=== PATIENT | female | born 1985 | race American Indian/Alaskan Native ===

== ENCOUNTER 2017-10-15 14:58 | Emergency (ER) | payer SELFPAY ==
[2017-10-15 16:30] LABS: Bacteria,Urine 2+ /HPF (Negative); Bilirubin,Urine NEG (Negative); Blood,Urine SM (Negative); Color,Urine Yellow (Yellow); Hyaline Casts,Urine 7 /LPF; Mucus,Urine FEW /HPF; Protein,Urine <15 mg/dL mg/dL (Negative); Urobilinogen,Urine < 2.0 mg/dL (<2.0)
[2017-10-15 16:35] LABS: HCG Qualitative,Urine Negative (Negative)
[2017-10-15 16:39] LABS: Amphetamine Screen,Urine PRESUMPTIVE NEGATIVE; Benzodiazepines Screen,Urine PRESUMPTIVE NEGATIVE; Cannabinoid Screen,Urine PRESUMPTIVE NEGATIVE; Cocaine Screen,Urine PRESUMPTIVE NEGATIVE; Methadone Screen,Urine PRESUMPTIVE NEGATIVE; Opiate Screen,Urine PRESUMPTIVE NEGATIVE
[2017-10-15 17:15] LABS: BUN/Creatinine Ratio 8; Blood Urea Nitrogen 4 mg/dL (7-17); Calcium 9.5 mg/dL (8.4-10.2); Hemolysis Index 64
[2017-10-15 19:14] LABS: Basophils # (Auto) 0.1 K/mm3 (0.0-0.1); Basophils % (Auto) 0.7 % (0.0-1.8); Eosinophils # (Auto) 0.5 K/mm3 (0.0-0.4); Eosinophils % (Auto) 3.7 % (0.0-4.3); Hematocrit 34.8 % (30.3-42.9); Hemoglobin 11.5 gm/dl (10.1-14.3); Lymphocytes % (Auto) 30.9 % (13.4-35.0); Mean Corpuscular HGB Conc 33 % (30-34); Mean Corpuscular Volume 72 fl (79-97); Monocytes # (Auto) 1.1 K/mm3 (0.0-0.8); Monocytes % (Auto) 8.7 % (0.0-7.3); Platelet Count 228 K/mm3 (140-440); Red Blood Count 4.81 M/mm3 (3.65-5.03); Red Cell Distribution Width 15.1 % (13.2-15.2)
[2017-10-15 19:48] LABS: Mean Corpuscular Hemoglobin 24 pg (28-32)
[2017-10-15] MEDS ORDERED: APRESOLINE IV ONE (21:06)
--- NOTE | 2017-10-15 21:07 | Emergency Department Report ---
HPI - General Chief Complaint: Psych Time Seen by Provider: 10/15/17 20:18 - HPI HPI: The patient is a 32-year-old female presents for evaluation of mental health. The patient reports expansion constant moderate severity depression for the past one week. She states that she was kicked out of the place where a friend was allowing her to live. She denies suicidal ideations or thoughts of harming herself . The patient denies fever, headache, unexplained weight loss or weight gain, heat or cold intolerance, skin, hair, or nail changes, neuro deficits, homicidal ideations, or auditory or visual hallucinations. ED Past Medical Hx - Social History Smoking Status: Current Every Day Smoker Substance Use Type: Alcohol - Medications Home Medications: Home Medications Medication Instructions Recorded Confirmed Last Taken Type Hydrochlorothiazide [HCTZ] 25 mg PO QDAY #30 tablet 10/16/17 Unknown Rx amLODIPine [Norvasc] 5 mg PO DAILY #31 tab 10/16/17 Unknown Rx ED Review of Systems ROS: Stated complaint: MENTAL HEALTH EVALUATION Other details as noted in HPI Constitutional: denies: fever ENT: denies: throat or neck pain Respiratory: denies: cough, shortness of breath Cardiovascular: denies: chest pain Endocrine: denies unexplained weight loss or gain Gastrointestinal: denies: abdominal pain, nausea Genitourinary: denies: dysuria Musculoskeletal: denies: leg swelling Skin: denies: rash Neurological: denies: headache Hematological/Lymphatic: denies: easy bleeding or easy bruising Psych: reports sadness or hopelessness Physical Exam - Physical Exam Vital Signs: Vital Signs 10/15/17 15:11 Temperature 99.1 F Pulse Rate 97 H Respiratory 16 Rate Blood Pressure 178/115 O2 Sat by Pulse 98 Oximetry Physical Exam: General: well-nourished, well-developed, no acute distress Head: Normocephalic, atraumatic Eyes: normal sclera ENT: Mucous membranes are pink and moist Neck: trachea midline, neck supple, No neck stiffness, no cervical adenopathy Respiratory: Breath sounds equal bilaterally, no wheezing, rales, or rhonchi Cardio: S1 and S2 present, no murmurs, rubs, gallops, capillary refill is brisk Abdomen: Normoactive bowel sounds, soft abdomen, no rigidity, no guarding or rebound tenderness Chest WALL/Back: No tenderness to palpation of the chest wall, no CVA tenderness with percussion Musc: No pitting edema Skin: No rash Neuro: no facial drooping, normal speech Psych: Flat affect, poor insight, depressed mood ED Course Vital Signs 10/15/17 15:11 Temperature 99.1 F Pulse Rate 97 H Respiratory 16 Rate Blood Pressure 178/115 O2 Sat by Pulse 98 Oximetry ED Medical Decision Making - Lab Data Result diagrams: 10/15/17 18:45 10/15/17 16:32 - Medical Decision Making The patient was seen and examined by myself. The patient is placed on a environmental monitoring technician and continuous pulse ox. On initial evaluation, the patient was found to be in no distress. Labs are obtained. Lab results are grossly unremarkable. The patient given a tablet of clonidine for her elevated blood pressure. The patient is medically clear. Mental health is consulted. Mental health evaluates the patient and agrees that the patient is negative for symptoms or signs concerning for risk of suicide or harm to herself. The patient was reevaluated and reported that their symptoms were markedly improved. The patient is stable for discharge with outpatient follow-up. The patient is given follow-up and return instructions. The patient expressed understanding and agreed with the plan. The patient is discharged in stable condition. Critical care attestation.: If time is entered above; I have spent that time in minutes in the direct care of this critically ill patient, excluding procedure time. ED Disposition Clinical Impression: Hypertensive urgency Depressed Qualifiers: Depression Type: major depressive disorder Major depression recurrence: single episode Active/Remission status: currently active Major depression episode severity: unspecified Qualified Code(s): F32.9 - Major depressive disorder, single episode, unspecified Disposition: DC-01 TO HOME OR SELFCARE Is pt being admited?: No Does the pt Need Aspirin: No Condition: Stable Instructions: Depression (ED), Suicide Prevention for Adults (ED) [facility] Time of Disposition: 21:07
[2017-10-15] MEDS ORDERED: CATAPRES PO ONE (21:41)
[2017-10-16 03:42] VITALS: BP 153/100
== END 2017-10-16 03:25 | disposition home or self-care (01) ==
LOC: ED 14:58
DX: F32.9 Major depressive disorder, single episode, unspecified (principal); I16.0 Hypertensive urgency; F17.200 Nicotine dependence, unspecified, uncomplicated; Z79.899 Other long term (current) drug therapy
CPT/HCPCS: 36415; 80048; 80307; 81001; 81025; 85025; 99284; G0480; J0360; 80320

== ENCOUNTER 2017-10-16 04:16 | Emergency (ER) | payer SELFPAY ==
[2017-10-16] MEDS ORDERED: HALDOL IM PRN (09:53)
[2017-10-16] MEDS ORDERED: ATIVAN IM PRN (09:53)
--- NOTE | 2017-10-16 09:57 | Emergency Department Report ---
ED General Adult HPI - General Chief complaint: Psych Stated complaint: MENTAL HEALTH Time Seen by Provider: 10/16/17 09:42 Source: patient, RN notes reviewed, old records reviewed Mode of arrival: Ambulatory Limitations: No Limitations - History of Present Illness Initial comments: This is a 32-year-old female who is unknown to this provider previously. She denies that she has chronic medical or psychiatric conditions, with the exception of morbid obesity, who presents to the ER with a complaint of depression, suicidality, wanting to kill herself. She reports feeling depressed and suicidal for 2 weeks. She indicates she will slit her wrists. She does not have hallucinations, she does not have homicidality, she has not attempted to overdose, and she denies access to guns or firearms. Her symptoms are constant, did not radiate anywhere, do not have qualitative descriptors, and she reports no exacerbating or relieving factors. The patient was seen in this department last night for depression without suicidality, and an unremarkable physical exam, unremarkable laboratory studies, and apparently after being discharged, reregistered, with a new complaint of suicidality. -: Gradual Consistency: constant Improves with: none Worsens with: none Associated Symptoms: denies other symptoms - Related Data Previous Rx's Medication Instructions Recorded Last Taken Type Hydrochlorothiazide [HCTZ] 25 mg PO QDAY #30 tablet 10/16/17 Unknown Rx amLODIPine [Norvasc] 5 mg PO DAILY #31 tab 10/16/17 Unknown Rx Allergies Allergy/AdvReac Type Severity Reaction Status Date / Time No Known Allergies Allergy Unverified 10/15/17 15:22 ED Review of Systems ROS: Stated complaint: MENTAL HEALTH Other details as noted in HPI Constitutional: denies: fever Eyes: denies: eye discharge ENT: denies: epistaxis Respiratory: denies: cough Cardiovascular: denies: chest pain Gastrointestinal: denies: vomiting Genitourinary: denies: dysuria Skin: denies: lesions Neurological: as per HPI Psychiatric: suicidal thoughts. denies: homicidal thoughts ED Past Medical Hx - Past Medical History Hx Arthritis: Yes Additional medical history: Chronic Bronchitis, Morbid Obesity. Cardiomyopathy - Surgical History Past Surgical History?: No - Social History Smoking Status: Current Every Day Smoker - Medications Home Medications: Home Medications Medication Instructions Recorded Confirmed Last Taken Type Hydrochlorothiazide [HCTZ] 25 mg PO QDAY #30 tablet 10/16/17 Unknown Rx amLODIPine [Norvasc] 5 mg PO DAILY #31 tab 10/16/17 Unknown Rx ED Physical Exam - General Limitations: No Limitations General appearance: alert, in no apparent distress, obese - Head Head exam: Present: atraumatic, normocephalic - Eye Eye exam: Present: normal appearance, EOMI. Absent: nystagmus - ENT ENT exam: Present: normal exam, normal orophraynx, mucous membranes moist, normal external ear exam - Neck Neck exam: Present: normal inspection, full ROM - Respiratory Respiratory exam: Present: normal lung sounds bilaterally. Absent: respiratory distress - Cardiovascular Cardiovascular Exam: Present: regular rate, normal rhythm, normal heart sounds. Absent: bradycardia, tachycardia, irregular rhythm, systolic murmur, diastolic murmur, rubs, gallop - GI/Abdominal GI/Abdominal exam: Present: soft, normal bowel sounds. Absent: distended, tenderness, guarding, rebound, rigid, pulsatile mass - Extremities Exam Extremities exam: Present: normal inspection, full ROM, other (2+ pulses noted in the bilateral upper, lower extremities. Compartments soft. No long bony tenderness. The pelvis is stable.). Absent: pedal edema, joint swelling, calf tenderness - Back Exam Back exam: Present: normal inspection, full ROM. Absent: paraspinal tenderness , vertebral tenderness - Neurological Exam Neurological exam: Present: alert, oriented X3, CN II-XII intact, normal gait, other (Extraocular movements intact. Tongue midline. No facial droop. Facial sensation intact to light touch in the V1, V2, V3 distribution bilaterally. 5 and 5 strength in 4 extremities.. Sensation is intact to light touch in 4 extremities.). Absent: motor sensory deficit - Psychiatric Psychiatric exam: Present: suicidal ideation. Absent: manic, homicidal ideation - Skin Skin exam: Present: warm, dry, intact, normal color. Absent: rash ED Course Vital Signs 10/16/17 04:18 Temperature 98.0 F Pulse Rate 74 Respiratory 18 Rate Blood Pressure 151/92 O2 Sat by Pulse 96 Oximetry ED Medical Decision Making - Lab Data Vital Signs 10/16/17 04:18 Temperature 98.0 F Pulse Rate 74 Respiratory 18 Rate Blood Pressure 151/92 O2 Sat by Pulse 96 Oximetry - Medical Decision Making Differential diagnosis, including but not limited to: Mood disorder, depression , suicidality, malingering, medical clearance for psychiatric placement Assessment and plan: 32-year-old female with reported depression and suicidality. Patient has had a full battery of laboratory studies within the past 24 hours and had been subsequently discharged and then re-signed in as a patient. She is placed on a 1013. She is afebrile with reassuring vital signs , and has an unremarkable physical exam with the exception of chronic morbid obesity. The patient is placed on a 1013, has a Jarvis Coma Scale of 15. The psychiatric team will be contacted for consultation, and at this point in time, there does not appear to be an immediate medical contraindication to psychiatric admission, evaluation and consultation. Critical care attestation.: If time is entered above; I have spent that time in minutes in the direct care of this critically ill patient, excluding procedure time. ED Disposition Clinical Impression: Medical clearance for psychiatric admission Disposition: DC/TX-65 PSY HOSP/PSY UNIT Is pt being admited?: No Does the pt Need Aspirin: No Condition: Stable Referrals: PRIMARY CARE, [Primary Care Provider] - 3-5 Days
[2017-10-16] MEDS ORDERED: BENADRYL PO ONE (20:02)
[2017-10-16] MEDS ORDERED: NORVASC PO SCH (21:00)
[2017-10-16] MEDS ORDERED: HCTZ PO SCH (21:00)
[2017-10-16] MEDS: BENADRYL PO SCH (22:04)
--- NOTE | 2017-10-17 12:41 | Consultation ---
History of Present Illness - Reason for Consult Consult date: 10/17/17 Reason for consult: Mental Health Evaluation Requesting physician: TRACI BARRIGA - Chief Complaint Chief complaint: "I am suicidal" - History of Present Psychiatric Illness 32-year-old AA female presenting to the ER for depression and SI's. The patient was seen in ER 24 hours prior and was discharged. Today the patient is emotional during the assessment. She stated that she don't have a place to go and still grieving the deaths of family members. She stated that she was in a relationship for 1.5 yrs and they broke up in April 2017. She stated that it' s been "hard trying to maintain mentally." She stated that she would slit her throat if she had the chance. She denies any previous suicide attempt when asked. She stated that she took antidepressants in the past, but cannot remember the name of the medications. She denies a poor appetite, but stated chronic insomnia. She denies any manic episodes in the past. She stated that her alcohol consumption (etoh) has increased the past several months. She stated that her last drink was a "couple days ago." She rate her depression 7/10 , with 10 being the worse. She denies HI's and AVH's. She stated that Benadryl helps her sleep. Medications and Allergies Allergies Allergy/AdvReac Type Severity Reaction Status Date / Time No Known Allergies Allergy Unverified 10/15/17 15:22 Home Medications Medication Instructions Recorded Confirmed Last Taken Type Hydrochlorothiazide [HCTZ] 25 mg PO QDAY #30 tablet 10/16/17 10/16/17 Unknown Rx amLODIPine [Norvasc] 5 mg PO DAILY #31 tab 10/16/17 10/16/17 Unknown Rx diphenhydrAMINE [Benadryl CAP] 50 mg PO QHS 10/16/17 10/16/17 Unknown History Active Meds: Active Medications Amlodipine Besylate (Norvasc) 5 mg PO DAILY IRASEMA Diphenhydramine HCl (Benadryl) 50 mg PO QHS IRASEMA Stop: 10/21/17 21:59 Last Admin: 10/16/17 22:04 Dose: 50 mg Haloperidol Lactate (Haldol) 5 mg IM Q6HR PRN PRN Reason: Agitation Hydrochlorothiazide (Hctz) 25 mg PO QDAY IRASEMA Lorazepam (Ativan) 2 mg IM Q4HR PRN PRN Reason: Agitation Past psychiatric history - Past Medical History Past Medical History: other (Chronic Bronchitis, Morbid Obesity. Cardiomyopathy ) Past Surgical History: No surgical history - past Psychiatric treatment and history psychiatric treatment history: Seen a psychiatrist in the past for depression. Denies a fam psy hx. - Social History Social history: other (Homeless) Mental Status Exam - Vital signs Last Vital Signs Temp 98.1 F 10/16/17 19:14 Pulse 86 10/16/17 19:14 Resp 18 10/17/17 04:00 BP 141/94 10/16/17 19:14 Pulse Ox 99 10/17/17 04:00 - Exam Narrative exam: MSE: Appearance: emotional Behavior: regular eye contact Speech: regular rate and tone Mood: "depressed" Affect: congruent to mood Thought Process: circumstantial Thought Content: denies HI's and AVH's Motor Activity: sitting up in bed Cognition: A/O x 3 Insight: fair Judgment: variable Results All other labs normal. Assessment and Plan Assessment and plan: Impression: MDD, Severe Type. R/O Alcohol Use DO. Hx of insomnia per the patient. Today the patient is emotional during the assessment. No acute withdrawals noted (etoh). DDx: R/O Bipolar DO Recommendation/Plan: Continue 1013 with placement to inpatient psy services. Start Zoloft 25 mg PO daily for depression and continue Discussed possible suicidality/medication induced hayde and possible rylan gain with patient reference Zoloft. Monitor the patient for alcohol withdrawals (etoh).
[2017-10-17] MEDS: HCTZ PO SCH (13:04)
[2017-10-17] MEDS: NORVASC PO SCH (13:04)
[2017-10-17] MEDS: MOTRIN PO PRN (13:09)
[2017-10-17] MEDS: ZOLOFT PO SCH (17:22)
[2017-10-17] MEDS: BENADRYL PO SCH (22:25)
[2017-10-18 02:40] LABS: Basophils % (Auto) 0.3 % (0.0-1.8); Eosinophils # (Auto) 0.4 K/mm3 (0.0-0.4); Eosinophils % (Auto) 4.4 % (0.0-4.3); Hematocrit 36.5 % (30.3-42.9); Hemoglobin 11.7 gm/dl (10.1-14.3); Lymphocytes # (Auto) 3.4 K/mm3 (1.2-5.4); Lymphocytes % (Auto) 35.9 % (13.4-35.0); Mean Corpuscular HGB Conc 32 % (30-34); Mean Corpuscular Volume 75 fl (79-97); Monocytes % (Auto) 10.2 % (0.0-7.3); Platelet Count 211 K/mm3 (140-440); Red Blood Count 4.88 M/mm3 (3.65-5.03); Red Cell Distribution Width 15.3 % (13.2-15.2)
[2017-10-18 02:44] LABS: Mean Corpuscular Hemoglobin 24 pg (28-32)
[2017-10-18 02:47] LABS: Bilirubin,Urine NEG (Negative); Blood,Urine LG (Negative); Color,Urine Yellow (Yellow)
[2017-10-18 02:48] LABS: RBC,Urine > 182.0 /HPF (0.0-6.0)
[2017-10-18 02:51] LABS: BUN/Creatinine Ratio 18; Blood Urea Nitrogen 9 mg/dL (7-17); Calcium 9.7 mg/dL (8.4-10.2); Hemolysis Index 2
[2017-10-18 02:53] LABS: Amphetamine Screen,Urine PRESUMPTIVE NEGATIVE; Benzodiazepines Screen,Urine PRESUMPTIVE NEGATIVE; Cannabinoid Screen,Urine PRESUMPTIVE NEGATIVE; Cocaine Screen,Urine PRESUMPTIVE NEGATIVE; Methadone Screen,Urine PRESUMPTIVE NEGATIVE; Opiate Screen,Urine PRESUMPTIVE NEGATIVE
[2017-10-18] MEDS: HCTZ PO SCH (11:00)
[2017-10-18] MEDS: ZOLOFT PO SCH (11:00)
[2017-10-18] MEDS: NORVASC PO SCH (11:03)
[2017-10-18] MEDS: MOTRIN PO PRN ×2 (12:55→22:22)
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
[2017-10-18 16:41] LABS: HCG Qualitative,Urine Negative (Negative)
[2017-10-18 22:21] VITALS: BP 129/88
[2017-10-18] MEDS: BENADRYL PO SCH (22:21)
[2017-10-19] MEDS ORDERED: ZOLOFT PO SCH (10:00)
== END 2017-10-19 00:35 ==
LOC: EEVIPCON 04:16 → ED 04:16
DX: F32.9 Major depressive disorder, single episode, unspecified (principal); J42 Unspecified chronic bronchitis; J45.909 Unspecified asthma, uncomplicated; E66.01 Morbid (severe) obesity due to excess calories; F17.200 Nicotine dependence, unspecified, uncomplicated; I42.9 Cardiomyopathy, unspecified; Z68.44 Body mass index [BMI] 60.0-69.9, adult; Z59.0 Homelessness
CPT/HCPCS: 36415; 80048; 80307; 81001; 81025; 85025; 99285; G0480; 80320